=== PATIENT | male | born 1975 | race Caucasian/White ===

== ENCOUNTER 2022-02-21 02:27 | Emergency (ER) | payer OTHER, SELFPAY ==
[2022-02-21 02:24] VITALS: BP 149/99; PULSE 130; RESP 22; TEMP 35.6; O2SAT 97
[2022-02-21] MEDS: LORazepam INJ (*CRX) 2 MG/ML VIAL 1 MG IV PUSH (03:01)
[2022-02-21] MEDS: SODIUM CHLORIDE 0.9% IV 1,000 ML 999 ML IV CONT ×2 (03:02→03:18)
--- NOTE | 2022-02-21 03:07 | ECG_ITS ---
Measurements Intervals Patrick Rate: 120 P: 56 WA: 151 QRS: -27 QRSD: 98 T: 62 QT: 309 QTc: 438 Interpretive Statements SINUS TACHYCARDIA BORDERLINE LEFT AXIS DEVIATION [QRS AXIS < -20] ABNORMAL RHYTHM ECG NO PREVIOUS ECG AVAILABLE FOR COMPARISON Electronically Signed On 02-21-2022 6:59:07 CDT by Diamond Acosta M.D.
[2022-02-21 03:12] LABS: Basophils Absolute Auto 0.1 K/mm3 (0.0-0.1); Basophils Percent Auto 0.7 % (0.2-1.2); Eosinophils Percent Auto 0.2 % (0-4.4); Hemoglobin 17.1 g/dL (14.0-18.0); Immature Granulocyte Absolute 0.09 K/mm3 (0.00-0.031); Immature Granulocyte Percent A 0.6 % (0-0.5); Lymphocytes Absolute Auto 1.37 K/mm3 (0.9-3.2); Lymphocytes Percent Auto 8.7 % (18.3-44.2); Mean Corpuscular HGB Conc 32.9 g/dl (32-36); Mean Corpuscular Hemoglobin 33.5 pg (26-34); Mean Corpuscular Volume 101.8 fl (80-100); Mean Platelet Volume 9.5 fl (7.4-10.4); Monocytes Absolute Auto 0.9 K/mm3 (0.1-0.6); Monocytes Percent Auto 5.6 % (2.6-8.5); Neutrophils Absolute Auto 13.3 K/mm3 (1.3-6.7); Neutrophils Percent Auto 84.2 % (45.5-73.1); Platelet Count Result 397 k/mm3 (150-375); Red Blood Count 5.11 M/mm3 (4.6-6.20); Red Cell Distribution Width 12.8 % (11.5-14.5); White Blood Count 15.8 K/mm3 (4.5-10.0)
[2022-02-21 03:19] LABS: Add Urine Microscopic? YES; Appearance Urine Cloudy (Clear); Bilirubin Urine Negative (Negative); Blood Urine 1+ (Negative); Color Urine Amber (Yellow); Glucose Urine UA Negative (Negative); Hyaline Casts Urine 30-49 /lpf; Ketones Urine Trace mg/dL (Negative); Leukocyte Esterase Ur Negative LEU/UL (Negative); Mucus Urine Heavy /lpf; Nitrate Urine Negative (Negative); Protein Urine 2+ mg/dL (Negative); RBC Urine 21-50 /hpf (0-2); Specific Grav Ur 1.027 (1.001-1.035); Squamous Epithelial Cell Urine Rare /hpf (Few); WBC Urine 21-30 /hpf
--- NOTE | 2022-02-21 03:36 | ED.GENADULT ---
HPI - General Adult General Chief complaint: Psychiatric Symptoms Stated complaint: people chasing pt after using meth Time Seen by Provider: 02/21/22 02:30 Source: patient and EMS Mode of arrival: EMS Limitations: no limitations History of Present Illness HPI narrative: 46-year-old male presents to the emergency department for evaluation after having hallucinations secondary to multiple days of using methamphetamine. Patient states he had a remote history of methamphetamine use but had not used for approximately 20 years. Patient is going through some relationship issues and ended up going on a prince for the last 3 days. Today patient had multiple interactions with the local Police Department due to the patient concerns that he was being followed and chased. This evening the patient ran from his hotel room to the gas station due to concerns for being followed. Patient was transported by EMS to the ED. Upon arrival to the ED patient states that he does understand that he was having hallucinations and is no longer having those hallucinations. Patient states at the time he was acutely intoxicated with methamphetamine. Patient states he no longer feels that he is altered. Patient denies any prior history of schizophrenia. Patient denies any current homicidal or suicidal ideation. Related Data Home Medications Medication Instructions Recorded Confirmed No Home Medications 02/21/22 02/21/22 Allergies Allergy/AdvReac Type Severity Reaction Status Date / Time codeine AdvReac Hallucinati Verified 02/21/22 02:59 ng Review of Systems Review of Systems: CONSTITUTIONAL: Denies fever, chills, or sweats. EYES: Denies visual changes, redness, or discharge. ENT: Denies rhinorrhea, congestion, sore throat, or otalgia. CARDIOVASCULAR: Denies chest pain, palpitations, or edema. RESPIRATORY: Denies cough or dyspnea. GASTROINTESTINAL: Denies abdominal pain, nausea, vomiting, or diarrhea. GENITOURINARY: Denies dysuria or hematuria. SKIN: Denies rash or itching. MUSCULOSKELETAL: Denies back pain, joint pain, or myalgia. NEUROLOGIC: Denies headache, numbness, or weakness. PSYCHIATRIC:see HPI All systems reviewed & are unremarkable except as noted in HPI and below PMFSH Social History Social History Substance use type: methamphetamine Exam Narrative: APPEARANCE: Well appearing, no pain, no distress, well-nourished. HEAD: normocephalic, atraumatic. EYES: PERRLA/EOMI, conjunctivae clear. NOSE: Normal no drainage THROAT: Pharynx clear, no exudate. NECK: Supple. No adenopathy, no masses. RESPIRATORY: Airway patent, respirations nonlabored. Clear to auscultation bilaterally, no rales, rhonchi, wheezing. CARDIOVASCULAR: Regular rate and rhythm without murmurs rubs or gallops. ABDOMINAL: Soft, nontender, nondistended, normal bowel sounds MUSCULOSKELETAL: Moves all extremities. Strength/ROM intact, No edema, No calf tenderness. NEURO: Alert. Cranial nerves II through XII intact. Grossly intact SKIN: Warm, dry. Normal Color PSYCHIATRIC: normal affect, alert and appropriate Course Course Emergency Course: While in the emergency department patient denied any hallucinations. Patient is medically cleared for discharge. Patient does feel improved, no active hallucinations. Patient was seeking assistance for trying to find the homeless residential to stay in. At time of discharge patient will see the acute care nurse practitioner. Vital Signs Vital signs: Vital Signs Temperature 96.0 F L 02/21/22 02:24 Pulse Rate 130 H 02/21/22 02:24 Respiratory Rate 22 H 02/21/22 02:24 Blood Pressure 149/99 H 02/21/22 02:24 Pulse Oximetry 97 02/21/22 02:24 Temperature 96.0 F L 02/21/22 02:24 Pulse Rate 100 02/21/22 07:24 Respiratory Rate 21 H 02/21/22 07:24 Blood Pressure 137/114 H 02/21/22 07:24 Pulse Oximetry 99 02/21/22 07:24 Medical Decision Making Vital Signs Vital Signs: Vital Signs Temperature 96.0 F L 02/21/22 02:2
[2022-02-21 03:46] LABS: Alanine Aminotransferase 69 U/L (4-50); Albumin Level 5.2 g/dL (3.5-5.1); Alkaline Phosphatase 109 U/L (38-126); Anion Gap 13 mmol/L (8-16); Aspartate Amino Transferase 99 U/L (17-59); Blood Urea Nitrogen 20 mg/dL (9-20); Carbon Dioxide 26 mmol/L (22-30); Chloride 99 mmol/L (98-107); Creatine Kinase 96 U/L (55-170); Estimated CRCL calculation 50 ml/min; Estimated Glomerular Filt Rate 43; Glucose 155 mg/dL (65-110); Potassium 3.7 mmol/L (3.4-5.0); Sodium 138 mmol/L (137-145)
[2022-02-21] MEDS: PANTOPRAZOLE SODIUM IV 40 MG VIAL IV PUSH (03:50)
[2022-02-21 03:54] LABS: Acetaminophen < 10 ug/mL (10-30); Ethanol < 10 mg/dL (<10); Salicylate < 1.0 mg/dL (2-20)
[2022-02-21 04:03] LABS: Barbiturate Screen Urine Negative (Negative); Benzodiazepines Screen Urine Negative (Negative)
[2022-02-21 04:20] LABS: Cannabinoid Screen Urine Negative (Negative); Cocaine Screen Urine Negative (Negative); Methadone Screen Urine Negative (Negative); Opiate Screen Urine Negative (Negative); Phencyclidine Screen Urine Negative (Negative)
[2022-02-21 04:37] LABS: Amphetamine Screen Urine Positive (Negative)
[2022-02-21 06:04] VITALS: BP 154/101; PULSE 96; RESP 16; O2SAT 97
--- NOTE | 2022-02-21 07:12 | PC.NURSE ---
Took report from manuel Tamayo resting in bed at this time.
--- NOTE | 2022-02-21 07:20 | PC.NURSE ---
Waiting on care coordination for further interventions at this time.
[2022-02-21 07:24] VITALS: BP 137/114; PULSE 100; RESP 21; O2SAT 99
--- NOTE | 2022-02-21 07:56 | PC.NURSE ---
Care Coordination spoke with this RN and stated that she found a detention and would be giving pt a cab voucher
--- NOTE | 2022-02-21 08:06 | PCCCNOTE ---
Called to ER to assist with a place to stay after DC. Met with patient at bedside states that he does not home or place to stay, asked if he had any family or friends that he could stay with and he does not. Asked if he would like critical care transport nurse to look for intermediate resources and he confirms that he wants this assistance. [facility] is only open M-F 8:30-4:30, Called to [place] [id number], spoke with Yessi per zip code, she does not have any shelters available today for men. Called to [facility] in [place], no answer on first couple calls, received a callback and spoke with arpan who states that they do have their day program. Spoke with patient and provided resources educated about [facility] and [facility] for business hours. Notified that [facility] has walk in day program and open today, explained that for walk-in overnight at [facility] need to be there between 7pm-9pm. Patient does not have transportation, provided cab voucher to his bedside RAYMOND Liu.
== END 2022-02-21 08:13 | disposition home or self-care (01) ==
PROVIDERS: Emergency Provider Emergency Medicine
DX: F15.129 Other stimulant abuse with intoxication, unspecified (principal); R00.0 Tachycardia, unspecified; R94.31 Abnormal electrocardiogram [ECG] [EKG]
CPT/HCPCS: 36415; 80053; 80307; 81001; 82550; 85025; 87086; 93005; 96365; 96375; 99284; C9113; J0131; J2060; J7030